=== PATIENT | male | born 2000 | race Hispanic/Latino ===

== ENCOUNTER 2025-02-17 11:54 | Emergency (ER) | payer SELFPAY ==
[2025-02-17 12:01] VITALS: BP 143/92
--- NOTE | 2025-02-17 16:53 | ED.GENMED ---
History of Present Illness
General
Chief Complaint: Headache
Time Seen by Provider: 02/17/25 16:44
History of Present Illness
History of Present Illness:
24-year-old otherwise healthy male presents to the emergency department for evaluation of headache and neck stiffness for the past 2 days associated with fever and chills. Having significant photophobia and nausea as well. Has not taken anything
for headache control. Denies any recent tick bites or insect bites. No vomiting, diplopia, chest pain, or shortness of breath. Denies URI symptoms.
Past History
Past History
ED Past Medical History: None
ED Past Surgical History: None
Social History
Tobacco: Non-smoker
Alcohol: Occasional
Drug: None
Personal: Single
Living: with family
Employment: Employed
Review of Systems
Review of Systems
Allergies reviewed?: Yes
All Other Systems: ROS reviewed and negative except as documented in HPI and ROS
Phy Exam
Physical Exam
Physical Exam:
GEN: Well appearing, NAD, WDWN
HEENT: Oral mucosa moist, no scleral icterus, no nasal congestion. Severe tenderness to palpation of bilateral paraspinous musculature, significant muscular rigidity noted in all andrew of range of motion
Cardiac: Regular rate
Lung: No respiratory distress, no tachypnea
MSK: No gross deformity or injuries
Skin: Good color, no pallor or jaundice, no rashes
Neuro: AO x3; CN II-XII grossly intact. BUE strength 5/5 in all andrew, sensation intact and symmetric. BLE strength 5/5 in all andrew, sensation intact and symmetric
Psych: Calm, cooperative
Course
Orders/Labs/Results
Orders:
Orders
02/17/25 16:52
Acetaminophen [Tylenol] 1,000 mg PO NOW STA
Ketorolac [Toradol] 15 mg IV NOW STA
02/17/25 17:35
COVID-19 Antigen Urgent
Source: Nasal Swab
Complete Blood Count/With Diff Urgent
Comprehensive Metabolic Panel Urgent
Monotest Urgent
Comment: ADD ON
Influenza A+B Rapid Molecular Urgent
WANDA Source: Nasal Swab
Specimen Description:
02/17/25 18:10
Add On- LAB Urgent
Tests Added?: monotest
Abnormal Lab Results
02/17/25
17:35
WBC 4.2 L 10^3/uL
(4.8-10.8)
Absolute Lymphs (auto) 1.0 L 10^3/uL
(1.2-3.4)
Monocytes % 9.4 H %
(1.7-9.3)
Glucose 106 H mg/dl
(70-99)
AST 83 H U/L
(17-59)
ALT 157 H U/L
(0-50)
02/17/25 17:35
02/17/25 17:35
Vital Signs
Initial and Last Documented VS:
Initial Vital Signs
Temp Pulse Resp BP Pulse Ox
98.3 F 101 18 143/92 98
02/17/25 12:01 02/17/25 12:01 02/17/25 12:01 02/17/25 12:01 02/17/25 12:01
Last Documented Vital Signs
Temp Pulse Resp BP Pulse Ox
98.7 F 84 16 126/76 100
02/17/25 17:39 02/17/25 17:39 02/17/25 17:39 02/17/25 18:00 02/17/25 17:39
MDM/Problems Addressed
MDM/Problems Addressed:
On initial exam the patient was noted to have moderate neck rigidity however after administration of Tylenol and Toradol his symptoms nearly resolved and his range of motion was dramatically improved. I had a lengthy discussion with the patient and
his mother at the bedside regarding the suspicion of a mild viral meningitis and I discussed the risk and potential benefits of lumbar puncture, through shared decision making and given the patient's dramatic improvement in symptoms we opted to hold
off on LP at this time however he is advised to return to emergency department with any worsening symptoms
*Pulse Oximetry
SaO2: 98
Oxygen Mode of Delivery: Room air
Patient hypoxic: no
*Critical Care Note
Total Time (30-74mins, 75-104mins- exclusive of procedures): Not Applicable
ED Attending Note
-
Portions of this chart may have been created with voice recognition software.� Occasional wrong word or��sound alike� substitutions may have occurred due to the inherent limitations of voice recognition software.
Discharge Plan
Departure
Patient Disposition: Home (Routine Discharge)
Date of Disposition: 02/17/25
Time of Disposition: 19:24
Patient with high blood pressure during this ER visit?: No
Discharge Problem:
Acute viral syndrome
Instructions: Viral Syndrome (DC)
Prescriptions:
No Action
No Current Medications
0
Referrals:
UNKNOWN - PT DOES,NOT KNOW [Family Provider]
Activity Restrictions/Additional Instructions:
We suspect that you have a viral illness causing your symptoms, this will typically resolve within 3 to 5 days. We discussed the potential concern for a mild viral meningitis however at this time given that your headache and neck pain improved with
medications we agreed that the risk of lumbar puncture outweighs the potential benefit. I do not have any concern for bacterial meningitis. Please take 600 mg of ibuprofen along with 1000 mg of Tylenol every 6-8 hours for pain control. Return to
the emergency department if headache is uncontrolled or neck pain worsens
Interventions
Interventions:
*Risk Screen - Suicide Last Done: 02/17/25 18:17
*General Assessment Last Done: 02/17/25 18:17
*Neglect/Abuse Screening Last Done: 02/17/25 18:17
*ED- Fall Risk Assessment Last Done: 02/17/25 18:17
*Nursing Disposition Last Done: 02/17/25 19:32
ED- Neurological Assessment Last Done: 02/17/25 18:17
ED-Skin Assessment Last Done: 02/17/25 18:17
Discharge Date and Time
Discharge Date/Time: 02/17/25 19:33
Print Language: POLISH
[2025-02-17] MEDS: TYLENOL 1000 MG PO (17:34)
[2025-02-17] MEDS: TORADOL 15 MG IV (17:34)
[2025-02-17 17:50] LABS: Hematocrit 42.6 % (39.0-52.0); Hemoglobin 14.6 g/dL (13.0-18.0); Mean Corp Hgb Conc. 34.3 g/dL (33.0-37.0); Mean Corpuscular Volume 80.5 fL (80.0-94.0); Nucleated Red Blood Cells % 0 % (-); Platelet Count 206 10^3/uL (130-400); Red Cell Dist. Width 12.2 % (11.5-14.5)
[2025-02-17 18:00] VITALS: BP 126/76
[2025-02-17 18:00] LABS: COVID-19 Antigen Negative (Negative)
[2025-02-17 18:03] LABS: ALT (SGPT) 157 U/L (0-50); AST (SGOT) 83 U/L (17-59); Albumin 4.9 g/dl (3.5-5.0); Alkaline Phosphatase 80 U/L (38-126); Blood Urea Nitrogen 10 mg/dl (9-20); Calcium 9.1 mg/dl (8.4-10.2); Carbon Dioxide 27 mmol/L (22-30); Chloride 102 mmol/L (98-107); Glucose 106 mg/dl (70-99); Potassium 3.9 mmol/L (3.5-5.1); Sodium 138 mmol/L (135-145); Total Protein 7.8 g/dl (6.3-8.2); eGFR > 60.00
== END 2025-02-17 19:33 | disposition home or self-care (01) ==
LOC: EMR 11:54
PROVIDERS: Physician Assistant; EMERGENCY PHYSICIAN Emergency Medicine
DX: B34.9 Viral infection, unspecified (principal); M43.6 Torticollis
CPT/HCPCS: 96374; 99284; 80053; 85025; 86308; 87502; 87811